=== PATIENT | female | born 1960 | race Caucasian/White ===

== ENCOUNTER → 2023-12-01 07:24 | Outpatient (REF) | payer BC, SELFPAY | LOC: WDC 07:24 | PROVIDERS: ATTENDING PHYSICIAN Obstetrics & Gynecology Gynecology; FAMILY PHYSICIAN Family Medicine | DX: Z12.31 Encounter for screening mammogram for malignant neoplasm of breast (principal) | CPT/HCPCS: 77063; 77067 ==

== ENCOUNTER → 2024-01-01 06:32 | Day surgery (SDC) | payer BC, SELFPAY | LOC: GI 06:32 | PROVIDERS: ATTENDING PHYSICIAN Internal Medicine Gastroenterology; FAMILY PHYSICIAN Family Medicine | DX: Z12.11 Encounter for screening for malignant neoplasm of colon (principal); K57.30 Diverticulosis of large intestine without perforation or abscess without bleeding; K64.8 Other hemorrhoids | CPT/HCPCS: G0121 ==

== ENCOUNTER → 2024-03-28 07:56 | Outpatient (REF) | payer BC, SELFPAY | LOC: WDC 07:56 | PROVIDERS: ATTENDING PHYSICIAN Obstetrics & Gynecology Gynecology; FAMILY PHYSICIAN Family Medicine | DX: R92.2 Inconclusive mammogram (principal) | CPT/HCPCS: 76641 ==

== ENCOUNTER → 2024-05-13 07:22 | Outpatient (REF) | payer BC, SELFPAY | LOC: RCS 07:22 | PROVIDERS: ATTENDING PHYSICIAN Family Medicine | DX: R01.1 Cardiac murmur, unspecified (principal) | CPT/HCPCS: 93306 ==

== ENCOUNTER → 2024-10-03 07:54 | Outpatient (REF) | payer BC, SELFPAY | LOC: RAD 07:54 | PROVIDERS: ATTENDING PHYSICIAN Family Medicine | DX: M81.6 Localized osteoporosis [Lequesne] (principal); Z78.0 Asymptomatic menopausal state | CPT/HCPCS: 77080 ==

== ENCOUNTER → 2024-12-06 07:26 | Outpatient (REF) | payer BC, SELFPAY | LOC: WDC 07:26 | PROVIDERS: ATTENDING PHYSICIAN Obstetrics & Gynecology Gynecology; FAMILY PHYSICIAN Family Medicine | DX: Z12.31 Encounter for screening mammogram for malignant neoplasm of breast (principal) | CPT/HCPCS: 77063; 77067 ==

== ENCOUNTER 2025-03-11 06:12 | Outpatient (RCR) | payer BC, SELFPAY | END 2025-03-11 23:59 | disposition home or self-care (01) | LOC: RST 06:12 | PROVIDERS: ATTENDING PHYSICIAN Otolaryngology; FAMILY PHYSICIAN Family Medicine | DX: R49.0 Dysphonia (principal); Z98.890 Other specified postprocedural states | CPT/HCPCS: 92507; 92524 ==